=== PATIENT | male | born 1995 | race Caucasian/White ===

== ENCOUNTER 2017-07-03 17:06 | Emergency (ER) | payer OTHER ==
[~2017-07-03] VITALS: Ht 167.6 cm; Wt 68.0 kg
[2017-07-03 17:08] VITALS: BP 134/77; PULSE 84; TEMP 37.1; O2SAT 99; Ht 167.6 cm; Wt 68.0 kg
--- NOTE | 2017-07-03 18:47 | EMERGENCY ROOM VISIT NOTE ---
History First contact with patient: 17:12 Chief Complaint: FINGER PAIN Stated Complaint: L INDEX FINGER CHECK FOR GLASS History of Present Illness The patient is a 21 year old male who presents to the Emergency Room with complaints of left index finger laceration. The patient was changing a light bulb in a car, which shattered as he began to remove it. The patient did have a small shard of glass in his finger, which he removed. The patient is reportedly up-to-date on his tetanus. He does not have significant bleeding or pain. He is concerned for retained foreign body. He rates his overall discomfort a /10. Review of Systems More than 6 systems were reviewed and otherwise negative with the exception of history of present illness. Past Medical/Surgical History No chronic medical disease Family History No pertinent family history Social History Smoking Status: Never Smoker Alcohol Use: none Drug Use: none Marital Status: single Occupation Status: student Current/Historical Medications No Active Prescriptions or Reported Meds Physical Exam Vital Signs Date Time Temp Pulse Resp B/P (MAP) Pulse Ox O2 Delivery O2 Flow Rate FiO2 07/03/17 17:08 37.1 84 20 134/77 99 Room Air Physical Exam VITALS: Vitals are noted on the nurse's note and reviewed by myself. Vital signs stable. GENERAL: Well-developed, well-nourished, white male, who is in no acute distress and resting comfortably. Patient is cooperative with the examination. MUSCULOSKELETAL: There is a small 2 mm laceration to the medial palmar aspect of the distal left second finger. This area does not significantly gape and will not require formal repair. The area was explored and no evidence of foreign body was appreciated. Neurovascular status is intact throughout the digit. NEURO: Patient was alert and oriented to person place and time. CN II through XII grossly intact. Medical Decision & Procedures ED Course Physical exam and history were performed. Nursing notes, EMR, and Medication List were personally reviewed. Patient appears to have a small laceration to the end of his left second finger from glass. There does not appear to be appreciable foreign body. The wound was cleansed and dressed. The patient was asked to follow with his primary care physician with any ongoing or persistent symptoms. The chart was completed utilizing [employer] Software. Grammatical errors, random word insertions, pronoun errors, and incomplete sentences are an occasional consequence of this system due to software limitations, ambient noise, and hardware issues. Any formal questions or concerns about the content, text, or information contained within the body of this dictation should be directly addressed to the provider for clarification. . Medical Decision Differential diagnosis includes, but is not limited to: Laceration, abrasion, foreign body, and others Impression Primary Impression: Finger laceration Departure Information Dispostion Home / Self-Care Condition GOOD Prescriptions No Active Prescriptions or Reported Meds Forms HOME CARE DOCUMENTATION FORM, IMPORTANT VISIT INFORMATION Patient Instructions [facility] Additional Instructions You were seen and evaluated today on an emergency basis only. This is not a substitute for, or an effort to provide, complete comprehensive medical care. It is not possible to recognize and treat all injuries or illnesses in a single emergency department visit. For this reason it is recommended that you followup with your primary care physician with any ongoing or persistent symptoms. Apply antibiotic ointment and a Band-Aid to the area for the next 2-3 days. You are welcome to return to the emergency department anytime with new, worsening, or concerning symptoms.
== END 2017-07-03 17:35 | disposition home or self-care (01) ==
LOC: C.EDB 17:07 → C.EDD 17:35
DX: S61.211A Laceration without foreign body of left index finger without damage to nail, initial encounter (principal); W25.XXXA Contact with sharp glass, initial encounter

== ENCOUNTER 2024-11-25 01:45 | Inpatient (IN) ==
--- NOTE | 2024-11-25 01:55 | Emergency Department Note ---
Impression & Plan Sepsis, Pneumonia, Chest pain, Tachycardia, SOB (shortness of breath) ED Provider Note CHIEF COMPLAINT: Chest pain, fever HISTORY OF PRESENTING ILLNESS: This 29-year-old male patient presents to the emergency department via EMS for evaluation of left-sided chest pain as well as fever. The patient states that he was out to dinner eating with a friend. He states that he had 1 alcoholic drink, but no additional drinks. He denies any drug use. Around 9:30 pm he states that he went to go to the bathroom in the restaurant and felt like his hands and feet went numb and he started shaking. The patient then developed chest pain radiating to the left shoulder along with SOB. He then developed a fever of 103.6 F and his BP was elevated. He went home and took 3 Tylenol at 11 pm tonight and Liquid IV and drank a lot of water because he felt like he was dehydrated. The patient feels like he has to have diarrhea, but has not had diarrhea yet. The patient states that he was doing a lot of physical activity earlier in the day including lots of lifting and moving. He had a headache with the fever, but the headache improved after the Tylenol. The patient had an episode of vomiting and felt like he passed out in the ambulance when they were putting the IV in. He has been coughing for the past 3-4 weeks, but did not have a fever until tonight. Denies any abdominal pain. Denies any urinary symptoms. The patient denies any tobacco use or vaping. The patient denies any history of heart problems. He denies any known family history of significant heart problems. The patient denies recent long car or plane rides or recent injury/trauma/surgery. Denies any personal history of blood clots or bleeding disorders. Denies any family history of blood clots or bleeding disorders. Denies any hormonal medication use. Denies any hemoptysis. Denies leg/calf pain or swelling. REVIEW OF SYSTEMS: See HPI for pertinent positives and pertinent negatives. ALLERGIES: NKDA MEDICATIONS: None PAST MEDICAL HISTORY: Denies pertinent past medical or pertinent past surgical history PHYSICAL EXAM: Vital Signs: Vitals are noted on the nurse's note and reviewed by myself. GENERAL: The patient was somewhat erratic with his answers and was hard to keep on task. The patient was sometimes not finishing a thought or sentence prior to going on to a new thought or sentence. However, he was non toxic in appearance and in no acute distress. SKIN: No obvious abnormal rashes or skin lesions. Capillary reflex less than 2 seconds. HEAD: Normocephalic, atraumatic. EARS: Bilateral external auditory canals clear without tragus tenderness. Bilateral tympanic membranes pearly fowler without erythema or effusion. No mastoid tenderness bilaterally. EYES: Pupils equal round and reactive to light and accommodation. Conjunctivae without injection, sclerae without icterus. Extraocular movements intact. NOSE: Patent, turbinates inflamed with no discharge. No sinus tenderness. MOUTH: Mucous membranes moist. Airway patent, uvula midline. Pharynx is not erythematous and not edematous without exudate. Pharynx without postnasal drip. No evidence for peritonsillar abscess. NECK: Supple without nuchal rigidity. No meningeal signs. No lymphadenopathy. No cervical spine or paraspinal muscle tenderness. HEART: Tachycardic without murmurs gallops or rubs. LUNGS: Clear to auscultation bilaterally without wheezes, rales or rhonchi. No accessory muscle use or retractions. The patient is pointing to the left side of his upper chest wall and the location of pain. Mild tenderness to palpation in this area. No crepitus noted on exam. ABDOMEN: Positive bowel sounds x 4. Normal tympanic percussion. Soft, nontender to palpation. No masses or hepatosplenomegaly. No guarding, rigidity, or rebound tenderness. No CVA tenderness. No focal RLQ or LLQ tenderness. MUSCULOSKELETAL: Bilateral lower extremities are nontender to palpation. No erythema, edema, warmth, or cording felt. Full range of motion of the bilateral upper and lower extremities with normal strength. Normal sensation to light and sharp touch of the bilateral upper and lower extremities. Peripheral pulses 2+ and equal in the bilateral upper and lower extremities. NEURO: Patient was alert and oriented to person place and time, but was somewhat erratic with his answers and hard to keep on task. DIFFERENTIAL DIAGNOSIS: Differential diagnosis includes angina, [place], pericarditis, myocarditis, aortic dissection, pleurisy, pneumothorax, PE, pneumonia, pneumomediastinum, esophagitis, esophageal spasm, GERD, perforated esophagus, perforated duodenal/gastric ulcer, pancreatitis, cholecystitis, costochondritis, musculoskeletal, viral syndrome, RSV, Influenza, COVID, strep throat, pharyngitis/tonsillitis, mononucleosis, retropharyngeal abscess, peritonsillar abscess, otitis media, otitis externa, sinusitis, bronchitis, pneumonia, as well as other pathologies. ED COURSE AND MEDICAL DECISION MAKING: HISTORY FROM INDEPENDENT HISTORIAN: Additional history obtained from EMS MEDICATIONS GIVEN: A total of 2.5 L normal saline solution bolus. Ibuprofen 600 mg p.o. Magnesium 1 g IV. Rocephin 2 g IV. Zithromax 500 mg p.o. DuoNeb treatment. Tylenol 1000 mg IV. MONITOR: Continuous traffic monitor specialist: Order was placed for continuous traffic monitor specialist. Patient was placed on the traffic monitor specialist and continuous pulse ox. Patient was noted to be in tachycardia at an initial rate of 110 bpm per my interpretation. EKG: EKG was interpreted by myself as sinus tachycardia at [address]pm with no acute [address] or T wave changes. INTERPRETATION OF LABS: I interpreted the labs with full lab results as below in the lab section of this note. Laboratory results pertinent to the emergent complaint are discussed in the MDM section below. The patient was advised to follow up with their PCP and/or specialist(s) for further outpatient monitoring and management of any abnormal results. INTERPRETATION OF IMAGING: Imaging studies were interpreted by myself and read by radiology as per the imaging section of this note. The patient was advised to follow up with their PCP and/or specialist(s) for further outpatient management of any non-emergent abnormal findings. Chest x-ray showed newly developed ill-defined opacity at the right middle lung zone. CT is advised. A newly developed ill-defined opacity in the left lower lung zone. Progressive course of bilateral prominent bronchovascular markings and reticular opacities. CTA of the chest with IV contrast showed focal non-opacification of the lateral basal segmental artery of the left lower lobe. More likely to be artifactual because of partial volume rather than the segmental thromboembolism. Few small patchy areas of consolidation with surrounding groundglass densities in the basal segments of the left lower lobe. Represents changes of infective bronchiolitis. CONSULTATIONS: On-call hospitalist CRITICAL CARE: I have personally spent 40 minutes of critical care time in the direct management of this patient. This includes bedside care, interpretation of diagnostic studies, and testing, discussion with consultants, patient, and family members, and other required patient management activities. This 40 minutes is in excess of all separately billable procedures. MDM SUMMARY: I examined the patient. The patient presents to the emergency department complaining of left-sided chest pain as well as fever. The patient states that his symptoms started this evening at 9:30 PM while he was out to dinner with a friend. He states that he had 1 alcoholic drink at dinner, but no additional drinks. He denies any drug use. He states that he went up to go to the bathroom because he thought that he had to have diarrhea and noticed that his hands and feet were tingling. He then developed the chest pain and shortness of breath. When the patient got home he had a fever and his symptoms got worse. He took Tylenol with minimal improvement of his symptoms and then called EMS. On exam, the patient was tachycardic, febrile, and was somewhat erratic with his answers and hard to focus. However, those symptoms resolved after the patient was given IV fluids and oral ibuprofen with resolution of his fever. An IV lock was placed and labs were drawn. White blood cell count elevated at 21.75. Hemoglobin slightly low at 13.9. Platelet count normal at 276. Coags were normal. Potassium low at 3.4 and glucose 122, but CMP otherwise normal. Magnesium low at 1.4. Lipase normal. CPK normal. High-sensitivity troponin normal. Lactate normal. Urinalysis with trace ketones and trace blood, but otherwise normal. Urine drug screen negative. Medical alcohol level negative. Respiratory BioFire negative. Stool BioFire negative. Chest x-ray showed newly developed ill-defined opacity at the right middle lung zone. CT is advised. A newly developed ill-defined opacity in the left lower lung zone. Progressive course of bilateral prominent bronchovascular markings and reticular opacities. CTA of the chest with IV contrast showed focal non- opacification of the lateral basal segmental artery of the left lower lobe. More likely to be artifactual because of partial volume rather than the segmental thromboembolism. Few small patchy areas of consolidation with surrounding groundglass densities in the basal segments of the left lower lobe. Represents changes of infective bronchiolitis. The patient was still tachycardic after the 2 L of normal saline solution bolus based on his ideal body weight so he was given an additional 500 mL normal saline solution bolus. The patient's tachycardia finally improved after the additional 500 mL of normal saline solution bolus. However, he did continue to have intermittent episodes of tachycardia with exertion. The patient was given a total of 2.5 L normal saline solution bolus based on his actual body weight. After blood cultures were drawn, the patient was given Rocephin 2 g IV and Zithromax 500 mg p.o. to treat the pneumonia. The patient's fever resolved after oral ibuprofen. The patient's magnesium was low and he was given magnesium 1 g IV. The patient was given a DuoNeb treatment without much improvement of his symptoms. The patient was given IV Tylenol with improvement of his pain, but not full resolution. The patient has pneumonia on chest x-ray and CT scan. There is also question of thromboembolism versus artifactual etiology on the patient's CTA of the chest. While the patient improved both subjectively and objectively, the patient still had intermittent episodes of tachycardia as well as an episode of hypotension. Therefore, I feel the patient requires admission for further evaluation, treatment, and close monitoring of his symptoms. I spoke with the on-call hospitalist who agreed to admit the patient for further evaluation and treatment. Please refer to their dictation for further details. The patient's care was transferred in stable condition. DIAGNOSIS: Sepsis Pneumonia Tachycardia Chest pain and shortness of breath - ? Artifact versus thromboembolism on CTA of the chest Past Med/Surg History Problem List (Updated 11/25/24 @ 06:12 by Giovanna Jones PA-C) SOB (shortness of breath) (Acute) Tachycardia (Acute) Chest pain (Acute) Pneumonia (Acute) Sepsis (Acute) Wrist tendonitis Finger laceration (Acute) Foreign body, eye (Acute) Iritis (Acute) Medical History No pertinent past medical history Surgical History No pertinent past surgical history Social History Smoking Status: Never smoker Preferred Language: Kyrgyz Feels Safe at Home: Yes Allergies Allergies Allergy/AdvReac Type Severity Reaction Status Date / Time No Known Allergies Allergy Verified 11/25/24 02:20 Home Meds Home Medications Medication Instructions Recorded Confirmed No Known Home Medications 05/17/23 04/20/25 Results & Data (ED) Vital Signs Vital Signs - 24 hr 11/25/24 01:54 11/25/24 02:17 11/25/24 02:30 Temperature 38.3 C H Temperature Source Oral Pulse Rate 108 H 106 H 105 H Pulse Rate [Apical] Pulse Rate from SpO2 Sensor Pulse Rhythm Pulse Rhythm [Apical] Pulse Strength [Apical] Respiratory Rate 20 20 Respiratory Effort / Characteristics Non-Labored Spontaneous Respiratory Depth Normal Respiratory Pattern Regular Blood Pressure 115/68 121/73 Blood Pressure [Right Arm] Blood Pressure Mean 83 84 Blood Pressure Mean [Right Arm] Pulse Oximetry 98 98 Oxygen Delivery Method Room Air Sepsis Recent Fever Within 48 Hours No Sepsis New/Unexplained Change in Mental Status No Sepsis Action Taken by Nursing Adv Provider Notified 11/25/24 02:31 11/25/24 03:02 11/25/24 03:30 Temperature Temperature Source Pulse Rate 102 H 108 H Pulse Rate [Apical] 107 H Pulse Rate from SpO2 Sensor Pulse Rhythm Regular Pulse Rhythm [Apical] Regular Pulse Strength [Apical] Normal Respiratory Rate 20 21 20 Respiratory Effort / Characteristics Non-Labored Spontaneous Respiratory Depth Normal Respiratory Pattern Regular Blood Pressure 127/72 Blood Pressure [Right Arm] 122/62 Blood Pressure Mean 78 Blood Pressure Mean [Right Arm] 82 Pulse Oximetry 99 98 98 Oxygen Delivery Method Room Air Room Air Sepsis Recent Fever Within 48 Hours Sepsis New/Unexplained Change in Mental Status Sepsis Action Taken by Nursing 11/25/24 04:00 11/25/24 04:06 11/25/24 05:00 Temperature 37.1 C Temperature Source Oral Pulse Rate 101 H 89 Pulse Rate [Apical] Pulse Rate from SpO2 Sensor Pulse Rhythm Pulse Rhythm [Apical] Pulse Strength [Apical] Respiratory Rate 18 22 Respiratory Effort / Characteristics Respiratory Depth Respiratory Pattern Blood Pressure 122/60 95/60 L Blood Pressure [Right Arm] Blood Pressure Mean 80 68 Blood Pressure Mean [Right Arm] Pulse Oximetry 98 99 Oxygen Delivery Method Sepsis Recent Fever Within 48 Hours Sepsis New/Unexplained Change in Mental Status Sepsis Action Taken by Nursing 11/25/24 05:30 Temperature Temperature Source Pulse Rate 101 H Pulse Rate [Apical] Pulse Rate from SpO2 Sensor 101 H Pulse Rhythm Pulse Rhythm [Apical] Pulse Strength [Apical] Respiratory Rate 22 Respiratory Effort / Characteristics Respiratory Depth Respiratory Pattern Blood Pressure 112/64 Blood Pressure [Right Arm] Blood Pressure Mean 80 Blood Pressure Mean [Right Arm] Pulse Oximetry 97 Oxygen Delivery Method Sepsis Recent Fever Within 48 Hours Sepsis New/Unexplained Change in Mental Status Sepsis Action Taken by Nursing Laboratory Data 11/25/24 01:55 11/25/24 01:55 Lab Results 11/25/24 11/25/24 11/25/24 Range/Units 01:55 02:21 02:25 WBC 21.75 H (4.8-10.8) K/ul RBC 4.68 L (4.70-6.10) M/uL Hgb 13.9 L (14.0-18.0) g/dl Hct 39.2 L (42.0-52.0) % MCV 83.8 (80.0-100.0) fL MCH 29.7 (25.0-34.0) pg MCHC 35.5 (32.0-36.0) g/dL RDW Std Deviation 35.7 L (36.4-46.3) fL RDW Coeff of Dalton 11.9 (11.5-14.5) % Plt Count 276 (130-400) K/uL MPV 10.2 (9.4-12.4) fL Immature Gran % (Auto) 0.6 % Neut % (Auto) 86.6 % Lymph % (Auto) 7.4 % [place] % (Auto) 5.1 % Eos % (Auto) 0.1 % Baso % (Auto) 0.2 % Neut # (Auto) 18.83 H (1.40-6.50) K/uL Lymph # (Auto) 1.60 (1.20-3.40) K/uL [place] # (Auto) 1.11 H (0.11-0.59) K/uL Eos # (Auto) 0.02 (0.00-0.50) K/uL Baso # (Auto) 0.05 (0.00-0.20) K/uL Immature Gran # (Auto) 0.14 (0.01-0.20) K/uL PT 11.1 (9.0-12.0) Seconds INR 1.0 (0.9-1.1) APTT 23 (21-31) Seconds PTT Ratio 0.9 Sodium 136 (136-145) mmol/L Potassium 3.4 L (3.5-5.1) mmol/L Chloride 104 (98-107) mmol/L Carbon Dioxide 23 (21-32) mmol/L Anion Gap 9 (3-11) BUN 21 (6-23) mg/dl Creatinine 1.13 (0.6-1.4) mg/dl Est Cr Clr Drug Dosing 95.8 ml/min eGFR 91.36 BUN/Creatinine Ratio 18.6 (10-20) Glucose 122 H (70-99(Fasting)) mg/dl Lactate 1.3 (0.4-2.0) mmol/L Calcium 8.9 (8.6-10.3) mg/dl Magnesium 1.4 L (1.7-2.4) mg/dl Total Bilirubin 0.6 (0.2-1.0) mg/dl AST 30 (13-39) U/L ALT 25 (7-52) U/L Alkaline Phosphatase 58 (34-104) U/L Total Creatine Kinase 164 (30-223) U/L Troponin I High Sens 7.4 (0-20) pg/ml Total Protein 6.8 (6.0-8.3) gm/dl Albumin 4.4 (3.4-5.0) gm/dl Globulin 2.4 L (2.5-4.0) gm/dl Albumin/Globulin Ratio 1.8 (0.9-2) Lipase 15 (11-82) U/L Procalcitonin 0.72 H (0-0.5) ng/ml Urine Color Yellow Urine Appearance Clear (Clear) Urine pH 7.0 (4.5-7.5) Ur Specific Mercer 1.015 (1.000-1.030) Urine Protein Negative (Negative) Urine Glucose (UA) Negative (Negative) Urine Ketones Trace H (Negative) Urine Blood Trace H (Negative) Urine Nitrite Negative (Negative) Urine Bilirubin Negative (Negative) Urine Urobilinogen Negative (Negative) Ur Leukocyte Esterase Negative (Negative) Urine WBC (Auto) 0-5 (0-5) /hpf Urine RBC (Auto) 0-2 (0-2) /hpf U Hyaline Cast (Auto) 0-2 (0-2) /lpf U Epithel Cells (Auto) 0-2 (0-2) /hpf Urine Bacteria (Auto) None Seen (None Seen) Stl C. cayetanensis PCR Not Detected (NotDetected) Stool Rotavirus A PCR Not Detected (NotDetected) Stl Adenov F 40/41 PCR Not Detected (NotDetected) Stool Astrovirus (PCR) Not Detected (NotDetected) Stool Campylobacter PCR Not Detected (NotDetected) Stool Cryptosporidium PCR Not Detected (NotDetected) Stl E.coli Shiga Tox PCR Not Detected (NotDetected) Stl Enterotoxigenic E PCR Not Detected (NotDetected) Stool EPEC (PCR) Not Detected (NotDetected) Stool EAEC (PCR) Not Detected (NotDetected) Stl E. histolytica PCR Not Detected (NotDetected) Stool Giardia Lamblia PCR Not Detected (NotDetected) Stool Salmonella PCR Not Detected (NotDetected) Stool Sapovirus (PCR) Not Detected (NotDetected) Stl P. shigelloides PCR Not Detected (NotDetected) Stl Shigella/EIEC PCR Not Detected (NotDetected) St Y.enterocolitica PCR Not Detected (NotDetected) Stool Vibrio (PCR) Not Detected (NotDetected) Stl Vibrio cholerae PCR Not Detected (NotDetected) Stl Norovirus GI/GII PCR Not Detected (NotDetected) Urine Opiates Screen Neg (Neg) Ur Methadone, Qual Neg (Neg) Urine Fentanyl Screen Neg (Neg) Urine Barbiturates Neg (Neg) Ur Phencyclidine (PCP) Neg (Neg) U Amphetamin/Meth Scrn Neg (Neg) MDMA (Ecstasy) Screen Neg (Neg) U Benzodiazepines Scrn Neg (Neg) Ur Cocaine Metabolite Neg (Neg) U Marijuana (THC) Screen Neg (Neg) Ethyl Alcohol mg/dL < 10.0 (<10.0) mg/dl Adenovirus (PCR) (NotDetected) B. pertussis DNA (PCR) (NotDetected) B.parapertussis DNA PCR (NotDetected) C. pneumoniae DNA (PCR) (NotDetected) Coronavirus OC43 (PCR) (NotDetected) Coronavirus HKU1 (PCR) (NotDetected) Coronavirus 229E (PCR) (NotDetected) SARS-CoV-2 (PCR) (NotDetected) Coronavirus NL63 (PCR) (NotDetected) Human Metapneumovir PCR (NotDetected) Influenza Type A (PCR) (NotDetected) Influenza Type B (PCR) (NotDetected) M. pneumoniae (PCR) (NotDetected) Parainfluenza 1 (PCR) (NotDetected) Parainfluenza 2 (PCR) (NotDetected) Parainfluenza 3 (PCR) (NotDetected) Parainfluenza 4 (PCR) (NotDetected) RSV (PCR) (NotDetected) Entero/Rhino (PCR) (NotDetected) 11/25/24 Range/Units 02:42 WBC (4.8-10.8) K/ul RBC (4.70-6.10) M/uL Hgb (14.0-18.0) g/dl Hct (42.0-52.0) % MCV (80.0-100.0) fL MCH (25.0-34.0) pg MCHC (32.0-36.0) g/dL RDW Std Deviation (36.4-46.3) fL RDW Coeff of Dalton (11.5-14.5) % Plt Count (130-400) K/uL MPV (9.4-12.4) fL Immature Gran % (Auto) % Neut % (Auto) % Lymph % (Auto) % [place] % (Auto) % Eos % (Auto) % Baso % (Auto) % Neut # (Auto) (1.40-6.50) K/uL Lymph # (Auto) (1.20-3.40) K/uL [place] # (Auto) (0.11-0.59) K/uL Eos # (Auto) (0.00-0.50) K/uL Baso # (Auto) (0.00-0.20) K/uL Immature Gran # (Auto) (0.01-0.20) K/uL PT (9.0-12.0) Seconds INR (0.9-1.1) APTT (21-31) Seconds PTT Ratio Sodium (136-145) mmol/L Potassium (3.5-5.1) mmol/L Chloride (98-107) mmol/L Carbon Dioxide (21-32) mmol/L Anion Gap (3-11) BUN (6-23) mg/dl Creatinine (0.6-1.4) mg/dl Est Cr Clr Drug Dosing ml/min eGFR BUN/Creatinine Ratio (10-20) Glucose (70-99(Fasting)) mg/dl Lactate (0.4-2.0) mmol/L Calcium (8.6-10.3) mg/dl Magnesium (1.7-2.4) mg/dl Total Bilirubin (0.2-1.0) mg/dl AST (13-39) U/L ALT (7-52) U/L Alkaline Phosphatase (34-104) U/L Total Creatine Kinase (30-223) U/L Troponin I High Sens (0-20) pg/ml Total Protein (6.0-8.3) gm/dl Albumin (3.4-5.0) gm/dl Globulin (2.5-4.0) gm/dl Albumin/Globulin Ratio (0.9-2) Lipase (11-82) U/L Procalcitonin (0-0.5) ng/ml Urine Color Urine Appearance (Clear) Urine pH (4.5-7.5) Ur Specific [place] (1.000-1.030) Urine Protein (Negative) Urine Glucose (UA) (Negative) Urine Ketones (Negative) Urine Blood (Negative) Urine Nitrite (Negative) Urine Bilirubin (Negative) Urine Urobilinogen (Negative) Ur Leukocyte Esterase (Negative) Urine WBC (Auto) (0-5) /hpf Urine RBC (Auto) (0-2) /hpf U Hyaline Cast (Auto) (0-2) /lpf U Epithel Cells (Auto) (0-2) /hpf Urine Bacteria (Auto) (None Seen) Stl C. cayetanensis PCR (NotDetected) Stool Rotavirus A PCR (NotDetected) Stl Adenov F 40/41 PCR (NotDetected) Stool Astrovirus (PCR) (NotDetected) Stool Campylobacter PCR (NotDetected) Stool Cryptosporidium PCR (NotDetected) Stl E.coli Shiga Tox PCR (NotDetected) Stl Enterotoxigenic E PCR (NotDetected) Stool EPEC (PCR) (NotDetected) Stool EAEC (PCR) (NotDetected) Stl E. histolytica PCR (NotDetected) Stool Giardia Lamblia PCR (NotDetected) Stool Salmonella PCR (NotDetected) Stool Sapovirus (PCR) (NotDetected) Stl P. shigelloides PCR (NotDetected) Stl Shigella/EIEC PCR (NotDetected) St Y.enterocolitica PCR (NotDetected) Stool Vibrio (PCR) (NotDetected) Stl Vibrio cholerae PCR (NotDetected) Stl Norovirus GI/GII PCR (NotDetected) Urine Opiates Screen (Neg) Ur Methadone, Qual (Neg) Urine Fentanyl Screen (Neg) Urine Barbiturates (Neg) Ur Phencyclidine (PCP) (Neg) U Amphetamin/Meth Scrn (Neg) MDMA (Ecstasy) Screen (Neg) U Benzodiazepines Scrn (Neg) Ur Cocaine Metabolite (Neg) U Marijuana (THC) Screen (Neg) Ethyl Alcohol mg/dL (<10.0) mg/dl Adenovirus (PCR) Not Detected (NotDetected) B. pertussis DNA (PCR) Not Detected (NotDetected) B.parapertussis DNA PCR Not Detected (NotDetected) C. pneumoniae DNA (PCR) Not Detected (NotDetected) Coronavirus OC43 (PCR) Not Detected (NotDetected) Coronavirus HKU1 (PCR) Not Detected (NotDetected) Coronavirus 229E (PCR) Not Detected (NotDetected) SARS-CoV-2 (PCR) Not Detected (NotDetected) Coronavirus NL63 (PCR) Not Detected (NotDetected) Human Metapneumovir PCR Not Detected (NotDetected) Influenza Type A (PCR) Not Detected (NotDetected) Influenza Type B (PCR) Not Detected (NotDetected) M. pneumoniae (PCR) Not Detected (NotDetected) Parainfluenza 1 (PCR) Not Detected (NotDetected) Parainfluenza 2 (PCR) Not Detected (NotDetected) Parainfluenza 3 (PCR) Not Detected (NotDetected) Parainfluenza 4 (PCR) Not Detected (NotDetected) RSV (PCR) Not Detected (NotDetected) Entero/Rhino (PCR) Not Detected (NotDetected) Administered Medications Discontinued Medications Albuterol (Albut/Ipratrop 3mg/0.5mg Neb 3 Ml Vial) 3 ml NEB NOW STA; Protocol Stop: 11/25/24 04:17 Last Admin: 11/25/24 04:38 Dose: 3 ml Documented By: VIRGEN Azithromycin (Azithromycin 250 Mg Tab) 500 mg PO NOW ONE Stop: 11/25/24 04:17 Last Admin: 11/25/24 04:38 Dose: 500 mg Documented By: VIRGEN Sodium Chloride (Nss) 1,000 mls @ 999 mls/hr IV .Q1H1M ONE Stop: 11/25/24 03:00 Last Infusion: 11/25/24 04:50 Dose: Infused Documented By: Admin: 11/25/24 02:18 Dose: 999 mls/hr Documented By: VIRGEN Magnesium Sulfate/Dextrose (Magnesium Sulfate / D5w) 1 gm in 100 mls @ 100 mls/hr IV NOW STA Stop: 11/25/24 03:47 Last Infusion: 11/25/24 04:50 Dose: Infused Documented By: Admin: 11/25/24 03:03 Dose: 100 mls/hr Documented By: VIRGEN Sodium Chloride (Nss) 1,000 mls @ 999 mls/hr IV .Q1H1M ONE Stop: 11/25/24 04:36 Last Admin: 11/25/24 04:07 Dose: 999 mls/hr Documented By: VIRGEN Ceftriaxone Sodium (Rocephin) 2,000 mg in 50 mls @ 100 mls/hr IV NOW STA Stop: 11/25/24 04:45 Last Infusion: 11/25/24 05:13 Dose: Infused Documented By: Admin: 11/25/24 04:38 Dose: 100 mls/hr Documented By: VIRGEN Acetaminophen (Ofirmev) 1,000 mg in 100 mls @ 400 mls/hr IV NOW STA Stop: 11/25/24 04:30 Last Infusion: 11/25/24 05:02 Dose: Infused Documented By: Admin: 11/25/24 04:37 Dose: 400 mls/hr Documented By: VIRGEN Sodium Chloride (Nss) 500 mls @ 999 mls/hr IV .Q31M ONE Stop: 11/25/24 04:46 Last Admin: 11/25/24 04:41 Dose: 999 mls/hr Documented By: VIRGEN Ibuprofen (Ibuprofen 600 Mg Tab) 600 mg PO NOW STA Stop: 11/25/24 02:01 Last Admin: 11/25/24 02:18 Dose: 600 mg Documented By: VIRGEN Ioversol (Optiray 320 125ml) 125 ml IV ONCE ONE Stop: 11/25/24 03:05 Last Admin: 11/25/24 03:04 Dose: 118 ml Documented By: ALEAH Imaging Data Radiologist's Impression: Chest X-Ray 11/25/24 02:00 EXAM: XR chest 1V portable CLINICAL HISTORY: Chest pain, nonspecific. TECHNIQUE: An X-ray of the chest is obtained in AP projection. COMPARISON: Prior CT angio 12/22/2022 reviewed. FINDINGS: Pulmonary Parenchyma: Newly developed ill-defined opacity seen at the middle lung zone silhouetting the right heart border. A newly developed an ill defined opacity is seen at the left lower lung zone. Progressive course of bilateral prominent bronchovascular markings and reticular opacities. No pulmonary nodules are identified. No evidence of pleural effusion or pleural thickening. Heart and Mediastinum: Heart size and shape are normal. No mediastinal widening or masses. No hilar or mediastinal lymphadenopathy. Bony Thorax: Bony thorax appears intact without fractures or deformities. Soft Tissues: Soft tissues overlying the chest wall are unremarkable. IMPRESSION: 1. Newly developed ill-defined opacity seen at the right middle lung zone; CT is advised. 2. A newly developed an ill defined opacity is seen at the left lower lung zone. 3. Progressive course of bilateral prominent bronchovascular markings and reticular opacities. Electronically signed by Singh Vang 11-25-2024 03:19 AM Chest CTA 11/25/24 02:01 EXAM: CT angio chest PE protocol CLINICAL HISTORY: Chest Pain, eval for PE TECHNIQUE: Contiguous axial images were obtained from the neck base through the upper abdomen following intravenous administration of iodinated contrast material. Angiographic images were processed, 3D MIP images were acquired for interpretation. If IV contrast material had not been administered, the likelihood of detecting abnormalities relevant to the patient's condition would have been substantially decreased. Coronal and sagittal 3-D MIPs were likewise performed and indicated to increase the sensitivity of detectin diffuse clinically relevant pathology. CT scan was performed according to ALARA (as low as reasonable achievable). COMPARISON: 12/22/2022 16:38:53 [employer] HELPER FINDINGS: Focal non-opacification of lateral basal segmental artery of left lower lobe. The central airways are patent. Few small patchy areas of consolidation with surrounding ground glass densities are noted in the basal segments of left lower lobe. Rest of the lungs are clear. No pleural effusion. The heart, aorta, and pulmonary arteries are of normal size and configuration. There are no appreciable coronary artery and aortic atherosclerotic calcifications. No pericardial effusion is identified. The thyroid is unremarkable. No mediastinal, hilar, or axillary lymphadenopathy is noted. No suspicious lytic or sclerotic osseous lesions are identified. IMPRESSION: 1. Focal non-opacification of lateral basal segmental artery of left lower lobe-More likely to be an artifactual because of partial volume rather than segmental thromboembolisml. 2. Few small patchy areas of consolidation with surrounding ground glass densities in the basal segments of left lower lobe. (New finding)-Represents changes of infective bronchiolitis - needs clinical and biochemical Parameters correlation. Electronically signed by Luis Garcia 11-25-2024 03:59 AM Discharge Plan Visit Data Chief Complaint: Chest Pain Stated Complaint: Chest Pain, Syncope, Cough ED Provider: Muriel Song ED Midlevel Provider: Giovanna Jones Discharge Problem: Sepsis, Pneumonia, Chest pain, Tachycardia, SOB (shortness of breath) Patient Disposition: Admitted As Inpatient Condition: Good Forms Stand Alone Forms: [facility] [email or web address], Important Visit Information Prescriptions Prescriptions: No Action No Known Home Medications Referrals Referrals: PCP,NO [Primary Care Provider] - Discharge Problem: Pneumonia Qualifiers: Pneumonia type: due to unspecified organism Laterality: bilateral Lung location: unspecified part of lung Qualified Code(s): J18.9 - Pneumonia, unspecified organism Chest pain Qualifiers: Chest pain type: unspecified Qualified Code(s): R07.9 - Chest pain, unspecified
[2024-11-25 02:17] LABS: Basophils # (auto) 0.05 K/uL (0.00-0.20); Basophils % (auto) 0.2 %; Eosinophils # (auto) 0.02 K/uL (0.00-0.50); Eosinophils % (auto) 0.1 %; Hematocrit (blood only) 39.2 % (42.0-52.0); Hemoglobin 13.9 g/dl (14.0-18.0); Immature Granulocytes # (auto) 0.14 K/uL (0.01-0.20); Immature Granulocytes % (auto) 0.6 %; Lymphocytes % (auto) 7.4 %; Mean Corpuscular Hemoglobin 29.7 pg (25.0-34.0); Mean Corpuscular Hgb Conc 35.5 g/dL (32.0-36.0); Mean Corpuscular Volume 83.8 fL (80.0-100.0); Mean Platelet Volume 10.2 fL (9.4-12.4); Monocytes # (auto) 1.11 K/uL (0.11-0.59); Monocytes % (auto) 5.1 %; Neutrophils # (auto) 18.83 K/uL (1.40-6.50); Neutrophils % (auto) 86.6 %; Platelet Count 276 K/uL (130-400); RDW Coefficient of Variation 11.9 % (11.5-14.5); RDW Standard Deviation 35.7 fL (36.4-46.3); Red Blood Count 4.68 M/uL (4.70-6.10); White Blood Count 21.75 K/ul (4.8-10.8)
[2024-11-25] MEDS: IBUPROFEN 600 MG TAB PO STA (02:18)
[2024-11-25] MEDS: SODIUM CHLORIDE 0.9% 1,000 ML IV ONE ×2 (02:18→04:07)
[2024-11-25 02:36] LABS: Albumin Globulin Ratio 1.8 (0.9-2); Albumin Level 4.4 gm/dl (3.4-5.0); BUN Creatinine Ratio 18.6 (10-20); Bilirubin,Total 0.6 mg/dl (0.2-1.0); Calcium 8.9 mg/dl (8.6-10.3); Creatinine Clr Calc Pharmacy 95.8 ml/min; Globulin 2.4 gm/dl (2.5-4.0); Magnesium 1.4 mg/dl (1.7-2.4); Potassium 3.4 mmol/L (3.5-5.1); Total Protein 6.8 gm/dl (6.0-8.3)
[2024-11-25 02:43] LABS: Partial Thromboplastin Ratio 0.9; Partial Thromboplastin Time 23 Seconds (21-31); Prothrombin Time 11.1 Seconds (9.0-12.0)
[2024-11-25 02:50] LABS: Appearance Urine Clear (Clear); Bacteria Urine Automated None Seen (None Seen); Bilirubin Urine Negative (Negative); Blood Urine Trace (Negative); Cast Urine Automated 0-2 /lpf (0-2); Color Urine Yellow; Epithelial Cell Urine Auto 0-2 /hpf (0-2); Glucose Urine UA Negative (Negative); Ketones Urine Trace (Negative); Leukocyte Esterase Urine Negative (Negative); Nitrite Urine Negative (Negative); Protein Urine Negative (Negative); RBC Urine Automated 0-2 /hpf (0-2); Specific Gravity Urine 1.015 (1.000-1.030); Urobilinogen Urine Negative (Negative); WBC Urine Automated 0-5 /hpf (0-5)
[2024-11-25 03:03] LABS: Troponin I High Sensitivity 7.4 pg/ml (0-20)
[2024-11-25] MEDS: MAGNESIUM SULFATE / D5W 1 GM/100 ML BAG IV STA (03:03)
[2024-11-25] MEDS: OPTIRAY 320 125ml IV ONE (03:04)
--- NOTE | 2024-11-25 03:20 | XRay Report ---
EXAM: XR chest 1V portable CLINICAL HISTORY: Chest pain, nonspecific. TECHNIQUE: An X-ray of the chest is obtained in AP projection. COMPARISON: Prior CT angio 12/22/2022 reviewed. FINDINGS: Pulmonary Parenchyma: Newly developed ill-defined opacity seen at the middle lung zone silhouetting the right heart border. A newly developed an ill defined opacity is seen at the left lower lung zone. Progressive course of bilateral prominent bronchovascular markings and reticular opacities. No pulmonary nodules are identified. No evidence of pleural effusion or pleural thickening. Heart and Mediastinum: Heart size and shape are normal. No mediastinal widening or masses. No hilar or mediastinal lymphadenopathy. Bony Thorax: Bony thorax appears intact without fractures or deformities. Soft Tissues: Soft tissues overlying the chest wall are unremarkable. IMPRESSION: 1. Newly developed ill-defined opacity seen at the right middle lung zone; CT is advised. 2. A newly developed an ill defined opacity is seen at the left lower lung zone. 3. Progressive course of bilateral prominent bronchovascular markings and reticular opacities. Electronically signed by Singh Vang 11-25-2024 03:19 AM
[2024-11-25 03:23] LABS: Amphetamines+Metham, Urine Neg (Neg); Barbiturates, Urine Neg (Neg); Benzodiazepine, Urine Neg (Neg); Cocaine, Urine Neg (Neg); Fentanyl, Urine Neg (Neg); MDMA (Ecstacy), Urine Neg (Neg); Marijuana, Urine Neg (Neg); Methadone, Urine Neg (Neg); Opiate, Urine Neg (Neg); Phencyclidine, Urine Neg (Neg)
[2024-11-25 03:40] LABS: Adenovirus PCR Not Detected (NotDetected); Bordetella parapertussis PCR Not Detected (NotDetected); Bordetella pertussis PCR Not Detected (NotDetected); Chlamydia pneumoniae PCR Not Detected (NotDetected); Coronavirus 229E PCR Not Detected (NotDetected); Coronavirus CoV-2 (COVID19)PCR Not Detected (NotDetected); Coronavirus HKU1 PCR Not Detected (NotDetected); Coronavirus NL63 PCR Not Detected (NotDetected); Coronavirus OC43PCR Not Detected (NotDetected); Human Metapneumovirus PCR Not Detected (NotDetected); Influenza A PCR Not Detected (NotDetected); Influenza B PCR Not Detected (NotDetected); Mycoplasma pneumoniae PCR Not Detected (NotDetected); Parainfluenza Virus 1 PCR Not Detected (NotDetected); Parainfluenza Virus 2 PCR Not Detected (NotDetected); Parainfluenza Virus 3 PCR Not Detected (NotDetected); Parainfluenza Virus 4 PCR Not Detected (NotDetected); Respiratory Syncytial VirusPCR Not Detected (NotDetected); Rhinovirus/Enterovirus PCR Not Detected (NotDetected)
--- NOTE | 2024-11-25 04:00 | CT Scan Report ---
EXAM: CT angio chest PE protocol CLINICAL HISTORY: Chest Pain, eval for PE TECHNIQUE: Contiguous axial images were obtained from the neck base through the upper abdomen following intravenous administration of iodinated contrast material. Angiographic images were processed, 3D MIP images were acquired for interpretation. If IV contrast material had not been administered, the likelihood of detecting abnormalities relevant to the patient's condition would have been substantially decreased. Coronal and sagittal 3-D MIPs were likewise performed and indicated to increase the sensitivity of detectin diffuse clinically relevant pathology. CT scan was performed according to ALARA (as low as reasonable achievable). 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 The central airways are patent. Few small patchy areas of consolidation with surrounding ground glass densities are noted in the basal segments of left lower lobe. Rest of the lungs are clear. No pleural effusion. The heart, aorta, and pulmonary arteries are of normal size and configuration. There are no appreciable coronary artery and aortic atherosclerotic calcifications. No pericardial effusion is identified. The thyroid is unremarkable. No mediastinal, hilar, or axillary lymphadenopathy is noted. No suspicious lytic or sclerotic osseous lesions are identified. IMPRESSION: 1. Focal non-opacification of lateral basal segmental artery of left lower lobe-More likely to be an artifactual because of partial volume rather than segmental thromboembolisml. 2. Few small patchy areas of consolidation with surrounding ground glass densities in the basal segments of left lower lobe. (New finding)-Represents changes of infective bronchiolitis - needs clinical and biochemical Parameters correlation. Electronically signed by Luis Garcia 11-25-2024 03:59 AM
[2024-11-25 04:01] LABS: Adenovirus F 40/41 PCR Not Detected (NotDetected); Astrovirus PCR Not Detected (NotDetected); Campylobacter PCR Not Detected (NotDetected); Cryptosporidium PCR Not Detected (NotDetected); Cyclospora cayetanensis PCR Not Detected (NotDetected); Entamoeba histolytica PCR Not Detected (NotDetected); Enteroaggregative E.coli(EAEC) Not Detected (NotDetected); Enteropathogenic E.coli (EPEC) Not Detected (NotDetected); Enterotoxigenic E.coli (ETEC) Not Detected (NotDetected); Giardia lamblia PCR Not Detected (NotDetected); Norovirus GI/GII PCR Not Detected (NotDetected); Plesiomonas shigelloides PCR Not Detected (NotDetected); Rotavirus A PCR Not Detected (NotDetected); Salmonella PCR Not Detected (NotDetected); Sapovirus PCR Not Detected (NotDetected); Shiga-like Toxin E.coli (STEC) Not Detected (NotDetected); Shigella/Enteroinvasive E.coli Not Detected (NotDetected); Vibrio cholerae PCR Not Detected (NotDetected); Vibrio species PCR Not Detected (NotDetected); Yersinia enterocolitica PCR Not Detected (NotDetected)
[2024-11-25] MEDS: ACETAMINOPHEN 1,000 MG/100 ML VIAL IV STA (04:37)
[2024-11-25] MEDS: AZITHROMYCIN 250 MG TAB PO ONE (04:38)
[2024-11-25] MEDS: cefTRIAXone SODIUM 2,000 MG/50 ML BAG IV STA (04:38)
[2024-11-25] MEDS: ALBUT/IPRATROP 3MG/0.5MG NEB 3 ML VIAL NEB STA (04:38)
[2024-11-25] MEDS: SODIUM CHLORIDE 0.9% 500 ML IV ONE (04:41)
--- NOTE | 2024-11-25 04:57 | History & Physical Report ---
Date of Service November 25, 2024 Assessment & Plan (1) Sepsis: (2) Pneumonia: Plan 29-year-old male with no significant PMHx who presents for chest pain starting the day [employer]. ED evaluation revealed leukocytosis 21.75 neutrophil predominant, H&H 13.9/39.2; PT/INR WNL; CMP potassium 3.4, glucose 122, magnesium 1.4, globulin 2.4; CK1 64; Trope 7.4; UA negative for infection; BioFire negative; stool studies negative; drug screen negative; CXR Develop ill-defined opacity seen in right middle lung zone, newly developed ill-defined opacity seen in left lower lung zone, progressive course of bilateral pulmonary bronchovascular markings and reticular opacities; chest CTA focal nonopacification of the lateral basal segmental artery of left lower lobe more likely to be artifactual because of volume rather than PE, few small patchy areas of consolidation with surrounding groundglass densities in the basal segments of LLL, changes of infective bronchiolitis; EKG sinus tachycardia with RAD at 114 bpm.; Provided with 2.5L NSS, mag sulfate 1 g IV, ibuprofen 600 mg p.o., ceftriaxone 2 g IV, azithromycin 500 mg p.o., butyryl 3 mL neb x 1, and acetaminophen 1 g IV in ED. #Sepsis/PNA Meeting sepsis criteria at admission, SIRS (HR, temp, WBC). Sx of sudden onset chest pain, shortness of breath, numbness/tingling in hands and feet starting the day of arrival. Did have 1 episode of vomiting and 1 episode of looser stool. Does not smoke, no illicit drug use. Tachycardic but otherwise hemodynamically stable- Suspect 2/2 infection/was nervous about symptoms. - CBC leukocytosis 21.75, H&H 13.9/29.2; BMP grossly WNL with exception potassium 3.4; troponin 7.4; lactate 1.3; BioFire negative; stool studies negative; Pro-Jaret pending - CBC a.m. - EKG sinus tachycardia - CXR ill-defined opacity seen in right middle lung zone, newly developed ill- defined opacity seen in left lower lung zone, progressive course of bilateral pulmonary bronchovascular markings and reticular opacities - Chest CTA focal nonopacification lateral basal segmental artery of LLL more likely to be artifactual rather than PE, few small patchy areas of consolidation with surrounding ground glass densities in the basal segments of LLL - O2 via NC to maintain >92%; No O2 at home - Sepsis fluids equal 1936 mL; received 2.5L total - Tylenol prn fever; Zofran prn N/V - PE vs artifact on chest CTA -- Lovenox started as VTE prophylaxis - Ceftriaxone 2 g IV + azithromycin 500 mg p.o. x 3 days #Hypomagnesemia As found on labs, appears to be acute. Received magnesium sulfate 1 g IV in ED. - Mg 1.4 - Mg am Dispo: Admit, med/tele VTE Prophylaxis: Lovenox This document was dictated utilizing GoToTags. Please excuse any grammatical errors that may be secondary to use of this software. 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 States that he was out to dinner when he got up to use the restroom to have a BM. At that time he started to have leg and hand numbness as well as some chest pain. He states that this episode lasted approximately 5 to 8 minutes and then he went and sat back down at the table. He went home following this and notes that he had a similar episode when he went to his brother's house where he started to have some left-sided chest pain that did not radiate, and it continued to become more severe throughout the night. States that it was just a heavy/sharp pain and was associated with SOB. He states that he felt as though he cannot take a deep breath. He does report that he has had approximately 3 days of a productive cough but he is unsure the quality of the sputum. He had a fever the day of arrival at 103 F and he took a Tylenol and it decreased some. Did have 1 episode of nausea with vomiting. Patient states he is currently chest pain-free, not SOB, and no palpitations. Denies any calf pain or swelling. Does not smoke, denies illicit drug use. ED evaluation revealed leukocytosis 21.75 neutrophil predominant, H&H 13.9/39.2; PT/INR WNL; CMP potassium 3.4, glucose 122, magnesium 1.4, globulin 2.4; CK1 64; Trope 7.4; UA negative for infection; BioFire negative; stool studies negative; drug screen negative; CXR Develop ill-defined opacity seen in right middle lung zone, newly developed ill-defined opacity seen in left lower lung zone, progressive course of bilateral pulmonary bronchovascular markings and reticular opacities; chest CTA focal nonopacification of the lateral basal segmental artery of left lower lobe more likely to be artifactual because of volume rather than PE, few small patchy areas of consolidation with surrounding groundglass densities in the basal segments of LLL, changes of infective bronchiolitis; EKG sinus tachycardia with RAD at 114 bpm.; Provided with 2.5L NSS, mag sulfate 1 g IV, ibuprofen 600 mg p.o., ceftriaxone 2 g IV, azithromycin 500 mg p.o., butyryl 3 mL neb x 1, and acetaminophen 1 g IV in ED. Please see Dr. Tubbs's attestation for adjustments/additions to treatment plan. Allergies Allergy/AdvReac Type Severity Reaction Status Date / Time No Known Allergies Allergy Verified 11/25/24 02:20 Home Medications Medication Instructions Recorded Confirmed Type No Known Home Medications 12/22/22 11/25/24 History Past Med/Surg History Problem List (Updated 11/25/24 @ 06:12 by Giovanna Jones PA-C) SOB (shortness of breath) (Acute) Tachycardia (Acute) Chest pain (Acute) Pneumonia (Acute) Sepsis (Acute) Wrist tendonitis Finger laceration (Acute) Foreign body, eye (Acute) Iritis (Acute) Medical History No pertinent past medical history Surgical History No pertinent past surgical history Social History Smoking Status: Never smoker Preferred Language: Fijian Feels Safe at Home: Yes Review of Systems Review of Systems: All systems reviewed & are unremarkable except as noted in Subjective Physical Exam Physical Exam: General: No acute distress Skin: Warm and dry Head: Normocephalic, atraumatic Eyes: PERRL, conjunctivae clear, sclera non-icteric ENT: External ear and ear canal without swelling; nose atraumatic; good dentition, tongue normal appearance, pharynx normal Neck: Supple, no LAD Cardio: Tachycardic, regular rhythm, no M/G/R, S1 and S2 normal Resp: No respiratory distress, Lungs CTA in all lobes bilaterally, no wheezes, rales, or rhonchi Abdomen: Soft, symmetric, nontender; No masses or hepatosplenomegaly; Bowel sounds normoactive MSK: No deformities; pulses palpable and equal; no edema; no calf size discrepancy, no calf edema, no calf tenderness Neuro: Awake, alert; Sensation intact bilaterally; CN grossly intact Psych: Appropriate mood and affect; good judgement and insight. Results & Data Results & Data Vital Signs (Past 12 Hours) Vital Signs Temp Pulse Pulse Resp BP BP Pulse Ox 11/25/24 04:06 37.1 C 11/25/24 04:00 101 H 18 122/60 98 11/25/24 03:30 107 H 20 122/62 98 11/25/24 03:02 108 H 21 127/72 98 11/25/24 02:31 102 H 20 99 11/25/24 02:30 105 H 20 121/73 98 11/25/24 02:17 106 H 11/25/24 01:54 38.3 C H 108 H 20 115/68 98 O2 Del Method 11/25/24 04:06 11/25/24 04:00 11/25/24 03:30 Room Air 11/25/24 03:02 11/25/24 02:31 Room Air 11/25/24 02:30 11/25/24 02:17 11/25/24 01:54 Room Air Laboratory Results 11/25/24 04:17 Aerobic Blood Culture - Pending Blood Anaerobic Blood Culture - Pending 11/25/24 04:15 Aerobic Blood Culture - Pending Blood Anaerobic Blood Culture - Pending 11/25/24 11/25/24 11/25/24 02:42 02:25 02:21 WBC RBC Hgb Hct MCV MCH MCHC RDW Std Deviation RDW Coeff of Dalton Plt Count MPV Immature Gran % (Auto) Neut % (Auto) Lymph % (Auto) Daniels % (Auto) Eos % (Auto) Baso % (Auto) Neut # (Auto) Lymph # (Auto) Daniels # (Auto) Eos # (Auto) Baso # (Auto) Immature Gran # (Auto) PT INR APTT PTT Ratio Sodium Potassium Chloride Carbon Dioxide Anion Gap BUN Creatinine Est Cr Clr Drug Dosing eGFR BUN/Creatinine Ratio Glucose Lactate 1.3 Calcium Magnesium Total Bilirubin AST ALT Alkaline Phosphatase Total Creatine Kinase Troponin I High Sens Total Protein Albumin Globulin Albumin/Globulin Ratio Lipase Urine Color Yellow Urine Appearance Clear Urine pH 7.0 Ur Specific [place] 1.015 Urine Protein Negative Urine Glucose (UA) Negative Urine Ketones Trace H Urine Blood Trace H Urine Nitrite Negative Urine Bilirubin Negative Urine Urobilinogen Negative Ur Leukocyte Esterase Negative Urine WBC (Auto) 0-5 Urine RBC (Auto) 0-2 U Hyaline Cast (Auto) 0-2 U Epithel Cells (Auto) 0-2 Urine Bacteria (Auto) None Seen Stl C. cayetanensis PCR Not Detected Stool Rotavirus A PCR Not Detected Stl Adenov F 40/41 PCR Not Detected Stool Astrovirus (PCR) Not Detected Stool Campylobacter PCR Not Detected Stool Cryptosporidium PCR Not Detected Stl E.coli Shiga Tox PCR Not Detected Stl Enterotoxigenic E PCR Not Detected Stool EPEC (PCR) Not Detected Stool EAEC (PCR) Not Detected Stl E. histolytica PCR Not Detected Stool Giardia Lamblia PCR Not Detected Stool Salmonella PCR Not Detected Stool Sapovirus (PCR) Not Detected Stl P. shigelloides PCR Not Detected Stl Shigella/EIEC PCR Not Detected St Y.enterocolitica PCR Not Detected Stool Vibrio (PCR) Not Detected Stl Vibrio cholerae PCR Not Detected Stl Norovirus GI/GII PCR Not Detected Urine Opiates Screen Neg Ur Methadone, Qual Neg Urine Fentanyl Screen Neg Urine Barbiturates Neg Ur Phencyclidine (PCP) Neg U Amphetamin/Meth Scrn Neg MDMA (Ecstasy) Screen Neg U Benzodiazepines Scrn Neg Ur Cocaine Metabolite Neg U Marijuana (THC) Screen Neg Ethyl Alcohol mg/dL Adenovirus (PCR) Not Detected B. pertussis DNA (PCR) Not Detected B.parapertussis DNA PCR Not Detected C. pneumoniae DNA (PCR) Not Detected Coronavirus OC43 (PCR) Not Detected Coronavirus HKU1 (PCR) Not Detected Coronavirus 229E (PCR) Not Detected SARS-CoV-2 (PCR) Not Detected Coronavirus NL63 (PCR) Not Detected Human Metapneumovir PCR Not Detected Influenza Type A (PCR) Not Detected Influenza Type B (PCR) Not Detected M. pneumoniae (PCR) Not Detected Parainfluenza 1 (PCR) Not Detected Parainfluenza 2 (PCR) Not Detected Parainfluenza 3 (PCR) Not Detected Parainfluenza 4 (PCR) Not Detected RSV (PCR) Not Detected Entero/Rhino (PCR) Not Detected 11/25/24 01:55 WBC 21.75 H RBC 4.68 L Hgb 13.9 L Hct 39.2 L MCV 83.8 MCH 29.7 MCHC 35.5 RDW Std Deviation 35.7 L RDW Coeff of Dalton 11.9 Plt Count 276 MPV 10.2 Immature Gran % (Auto) 0.6 Neut % (Auto) 86.6 Lymph % (Auto) 7.4 Daniels % (Auto) 5.1 Eos % (Auto) 0.1 Baso % (Auto) 0.2 Neut # (Auto) 18.83 H Lymph # (Auto) 1.60 Daniels # (Auto) 1.11 H Eos # (Auto) 0.02 Baso # (Auto) 0.05 Immature Gran # (Auto) 0.14 PT 11.1 INR 1.0 APTT 23 PTT Ratio 0.9 Sodium 136 Potassium 3.4 L Chloride 104 Carbon Dioxide 23 Anion Gap 9 BUN 21 Creatinine 1.13 Est Cr Clr Drug Dosing 95.8 eGFR 91.36 BUN/Creatinine Ratio 18.6 Glucose 122 H Lactate Calcium 8.9 Magnesium 1.4 L Total Bilirubin 0.6 AST 30 ALT 25 Alkaline Phosphatase 58 Total Creatine Kinase 164 Troponin I High Sens 7.4 Total Protein 6.8 Albumin 4.4 Globulin 2.4 L Albumin/Globulin Ratio 1.8 Lipase 15 Urine Color Urine Appearance Urine pH Ur Specific [place] Urine Protein Urine Glucose (UA) Urine Ketones Urine Blood Urine Nitrite Urine Bilirubin Urine Urobilinogen Ur Leukocyte Esterase Urine WBC (Auto) Urine RBC (Auto) U Hyaline Cast (Auto) U Epithel Cells (Auto) Urine Bacteria (Auto) Stl C. cayetanensis PCR Stool Rotavirus A PCR Stl Adenov F 40/41 PCR Stool Astrovirus (PCR) Stool Campylobacter PCR Stool Cryptosporidium PCR Stl E.coli Shiga Tox PCR Stl Enterotoxigenic E PCR Stool EPEC (PCR) Stool EAEC (PCR) Stl E. histolytica PCR Stool Giardia Lamblia PCR Stool Salmonella PCR Stool Sapovirus (PCR) Stl P. shigelloides PCR Stl Shigella/EIEC PCR St Y.enterocolitica PCR Stool Vibrio (PCR) Stl Vibrio cholerae PCR Stl Norovirus GI/GII PCR Urine Opiates Screen Ur Methadone, Qual Urine Fentanyl Screen Urine Barbiturates Ur Phencyclidine (PCP) U Amphetamin/Meth Scrn MDMA (Ecstasy) Screen U Benzodiazepines Scrn Ur Cocaine Metabolite U Marijuana (THC) Screen Ethyl Alcohol mg/dL < 10.0 Adenovirus (PCR) B. pertussis DNA (PCR) B.parapertussis DNA PCR C. pneumoniae DNA (PCR) Coronavirus OC43 (PCR) Coronavirus HKU1 (PCR) Coronavirus 229E (PCR) SARS-CoV-2 (PCR) Coronavirus NL63 (PCR) Human Metapneumovir PCR Influenza Type A (PCR) Influenza Type B (PCR) M. pneumoniae (PCR) Parainfluenza 1 (PCR) Parainfluenza 2 (PCR) Parainfluenza 3 (PCR) Parainfluenza 4 (PCR) RSV (PCR) Entero/Rhino (PCR) Diagnostic Findings Chest X-Ray 11/25/24 02:00 EXAM: XR chest 1V portable CLINICAL HISTORY: Chest pain, nonspecific. TECHNIQUE: An X-ray of the chest is obtained in AP projection. COMPARISON: Prior CT angio 12/22/2022 reviewed. FINDINGS: Pulmonary Parenchyma: Newly developed ill-defined opacity seen at the middle lung zone silhouetting the right heart border. A newly developed an ill defined opacity is seen at the left lower lung zone. Progressive course of bilateral prominent bronchovascular markings and reticular opacities. No pulmonary nodules are identified. No evidence of pleural effusion or pleural thickening. Heart and Mediastinum: Heart size and shape are normal. No mediastinal widening or masses. No hilar or mediastinal lymphadenopathy. Bony Thorax: Bony thorax appears intact without fractures or deformities. Soft Tissues: Soft tissues overlying the chest wall are unremarkable. IMPRESSION: 1. Newly developed ill-defined opacity seen at the right middle lung zone; CT is advised. 2. A newly developed an ill defined opacity is seen at the left lower lung zone. 3. Progressive course of bilateral prominent bronchovascular markings and reticular opacities. Electronically signed by Singh Vang 11-25-2024 03:19 AM Chest CTA 11/25/24 02:01 EXAM: CT angio chest PE protocol CLINICAL HISTORY: Chest Pain, eval for PE TECHNIQUE: Contiguous axial images were obtained from the neck base through the upper abdomen following intravenous administration of iodinated contrast material. Angiographic images were processed, 3D MIP images were acquired for interpretation. If IV contrast material had not been administered, the likelihood of detecting abnormalities relevant to the patient's condition would have been substantially decreased. Coronal and sagittal 3-D MIPs were likewise performed and indicated to increase the sensitivity of detectin diffuse clinically relevant pathology. CT scan was performed according to ALARA (as low as reasonable achievable). COMPARISON: 12/22/2022 16:38:53 [employer] FINDINGS: Focal non-opacification of lateral basal segmental artery of left lower lobe. The central airways are patent. Few small patchy areas of consolidation with surrounding ground glass densities are noted in the basal segments of left lower lobe. Rest of the lungs are clear. No pleural effusion. The heart, aorta, and pulmonary arteries are of normal size and configuration. There are no appreciable coronary artery and aortic atherosclerotic calcifications. No pericardial effusion is identified. The thyroid is unremarkable. No mediastinal, hilar, or axillary lymphadenopathy is noted. No suspicious lytic or sclerotic osseous lesions are identified. IMPRESSION: 1. Focal non-opacification of lateral basal segmental artery of left lower lobe-More likely to be an artifactual because of partial volume rather than segmental thromboembolisml. 2. Few small patchy areas of consolidation with surrounding ground glass densities in the basal segments of left lower lobe. (New finding)-Represents changes of infective bronchiolitis - needs clinical and biochemical Parameters correlation. Electronically signed by Luis Garcia 11-25-2024 03:59 AM Medications Administered 2.5L NSS Mag sulfate 1 g IV Ibuprofen 600 mg p.o. Ceftriaxone 2 g IV Azithromycin 500 mg p.o. Albuterol 3 mL neb x 1 Acetaminophen 1g IV ECG Additional Comments: Sinus tachycardia, RAD 114 bpm, NJ 190, QRS 98, QT/QTc 300/413, PRT 66/97/48 Code Status & VTE Plan Code Status Full Supervising Physician Co-Signing Physician Notes I personally saw and examined the patient. I independently reviewed the labs, EKG, imaging, problem list, medication list, past medical history and family history. I verified all sparrow points and agree with Marlon Vasquez PA-C with the following exceptions and/or additions: 29-year-old male presents to the ER with sudden onset chest pain and fever today after a cough approximately for the last week. O/E HS increased rate, regular rhythm, no murmurs, Chest CTAB, Abdo SNT A/P Sepsis / pneumonia - ceftriaxone plus metronidazole, lactate 1.3 no need for further IV fluids. Ibuprofen for pleuritic pain. Suspect WBC somewhat reactive demargination related to vomiting, procalcitonin pending. Questionable filling defect on CT - most likely artifactual given lack of risk factors, young age and alternative explanation of pain. Consider treatment if not improving despite antibiotics PG Care Time/CCT Total # of Minutes Spent Total Time Spent with Patient: Total time spent is greater than 50% in coordination of care (as documented) at patient's floor/unit and/or counseling patient: Coding Level of Care Code 18291 INT INP/OBS CARE 375MIN Diagnoses Sepsis A41.9 Pneumonia J18.9
--- NOTE | 2024-11-25 07:12 | Electrocardiogram Report ---
Test Reason : Blood Pressure : */* mmHG Vent. Rate : 114 BPM Atrial Rate : 114 BPM P-R Int : 190 ms QRS Dur : 98 ms QT Int : 300 ms P-R-T Axes : 66 97 48 degrees QTcB Int : 413 ms Sinus tachycardia Rightward axis Borderline ECG When compared with ECG of 22-Dec-2022 16:06, No significant change was found Confirmed by Dionicio Malik ([id number]) on 11/25/2024 7:12:35 AM Referred By: NO PCP Confirmed By: Dionicio Malik
[2024-11-25] MEDS ORDERED: POLYETHYLENE (MIRALAX) 17 GM PACK PO PRN (09:07)
[2024-11-25] MEDS ORDERED: ONDANSETRON INJ 2 MG/ML 2 ML VIAL IV PRN (09:07)
[2024-11-25] MEDS ORDERED: IBUPROFEN 200 MG/10 ML UDC PO PRN (09:07)
[2024-11-25] MEDS ORDERED: ACETAMINOPHEN 325 MG TAB PO PRN (09:07)
[2024-11-25] MEDS ORDERED: ALUMINUM/MAGNESIUM SUSP 30 ML UDC PO PRN (09:07)
[2024-11-25] MEDS ORDERED: MELATONIN 3 MG TAB PO PRN (09:07)
[2024-11-25 09:09] VITALS: RESP 18; TEMP 97.7
[2024-11-25] MEDS: ENOXAPARIN INJ 40 MG/0.4 ML SYR SQ SCH (11:15)
[2024-11-25 11:18] VITALS: BP 124/71; PULSE 83; O2SAT 99
--- NOTE | 2024-11-25 12:57 | Discharge Summary ---
Discharge Summary Date of Service November 25, 2024 Principal Dx & Hospital Course #1 = Principal Diagnosis (1) Sepsis: (2) Pneumonia: Plan 29-year-old male with no significant PMHx who presents for chest pain starting the day [employer]. ED evaluation revealed leukocytosis 21.75 neutrophil predominant, H&H 13.9/39.2; PT/INR WNL; CMP potassium 3.4, glucose 122, magnesium 1.4, globulin 2.4; CK1 64; Trope 7.4; UA negative for infection; BioFire negative; stool studies negative; drug screen negative; CXR Develop ill-defined opacity seen in right middle lung zone, newly developed ill-defined opacity seen in left lower lung zone, progressive course of bilateral pulmonary bronchovascular markings and reticular opacities; chest CTA focal nonopacification of the lateral basal segmental artery of left lower lobe more likely to be artifactual because of volume rather than PE, few small patchy areas of consolidation with surrounding groundglass densities in the basal segments of LLL, changes of infective bronchiolitis; EKG sinus tachycardia with RAD at 114 bpm.; Provided with 2.5L NSS, mag sulfate 1 g IV, ibuprofen 600 mg p.o., ceftriaxone 2 g IV, azithromycin 500 mg p.o., butyryl 3 mL neb x 1, and acetaminophen 1 g IV in ED. #Sepsis/PNA Meeting sepsis criteria at admission, SIRS (HR, temp, WBC). Sx of sudden onset chest pain, shortness of breath, numbness/tingling in hands and feet starting the day of arrival. Did have 1 episode of vomiting and 1 episode of looser stool. Does not smoke, no illicit drug use. Tachycardic but otherwise hemodynamically stable- Suspect 2/2 infection/was nervous about symptoms. CBC w/ leukocytosis of 21.75. BMP w/ mildly low K of 3.4. Troponin negative, Lactate 1.3, Procal 0.72 Biofire negative, stool studies negative EKG w/ sinus tachycardia CXR: ill-defined opacity seen in right middle lung zone, newly developed ill- defined opacity in left lower lung zone, progressive course of b/l pulmonary bronchovascular markings and reticular opacities. Chest CTA: focal non-opacification lateral basal segmental artery of LLL most likely artifact, few small patchy areas of consolidation w/ surrounding ground glass densities in basal segments of LLL. Given patient's history of productive cough and the fact that he has no RF of a bloot clot, a PE is very unlikely. Patient has responded well to IVF, IV antibiotics and is feeling better. His chest pain only is occurring upon deep inspiration & has not been as severe compared to when he presented to the ED. Ibuprofen as needed for chest pain s/p Rocephin & Azithromycin --> transition to Amoxicillin TID x 4 days and Azithromycin (500mg) x 2 days upon discharge. 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 #Hypomagnesemia As found on labs, appears to be acute. - 1.4 Received magnesium sulfate 1 g IV in ED. Patient discharged home 11/25. Admission HPI Per Admitting Provider 29-year-old male with no significant PMHx who presents for chest pain starting the day [employer]. States that he was out to dinner when he got up to use the restroom to have a BM. At that time he started to have leg and hand numbness as well as some chest pain. He states that this episode lasted approximately 5 to 8 minutes and then he went and sat back down at the table. He went home following this and notes that he had a similar episode when he went to his brother's house where he started to have some left-sided chest pain that did not radiate, and it continued to become more severe throughout the night. States that it was just a heavy/sharp pain and was associated with SOB. He states that he felt as though he cannot take a deep breath. He does report that he has had approximately 3 days of a productive cough but he is unsure the quality of the sputum. He had a fever the day of arrival at 103 F and he took a Tylenol and it decreased some. Did have 1 episode of nausea with vomiting. Patient states he is currently chest pain-free, not SOB, and no palpitations. Denies any calf pain or swelling. Does not smoke, denies illicit drug use. ED evaluation revealed leukocytosis 21.75 neutrophil predominant, H&H 13.9/39.2; PT/INR WNL; CMP potassium 3.4, glucose 122, magnesium 1.4, globulin 2.4; CK1 64; Trope 7.4; UA negative for infection; BioFire negative; stool studies negative; drug screen negative; CXR Develop ill-defined opacity seen in right middle lung zone, newly developed ill-defined opacity seen in left lower lung zone, progressive course of bilateral pulmonary bronchovascular markings and reticular opacities; chest CTA focal nonopacification of the lateral basal segmental artery of left lower lobe more likely to be artifactual because of volume rather than PE, few small patchy areas of consolidation with surrounding groundglass densities in the basal segments of LLL, changes of infective bronchiolitis; EKG sinus tachycardia with RAD at 114 bpm.; Provided with 2.5L NSS, mag sulfate 1 g IV, ibuprofen 600 mg p.o., ceftriaxone 2 g IV, azithromycin 500 mg p.o., butyryl 3 mL neb x 1, and acetaminophen 1 g IV in ED. Please see Dr. Tubbs's attestation for adjustments/additions to treatment plan. Discharge Exam Constitutional WD/WN, vitals as above Eyes PERRL, conjunctivae normal, anicteric sclerae Respiratory normal respiratory effort, lungs clear to auscultation Cardiovascular RRR, no murmur, no edema Neurologic PERRL, EOMI, accommodation nl, no face palsy, no dysarthria Psychiatric A+Ox3, euthymic affect Discharge Plan Discharge Items Patient Disposition: Home - Self-Care Reason For Visit: PNA Discharge Diagnosis: Pneumonia Condition on Discharge: Good Activity: Resume your previous activity Non-emergency contact: Primary Care Provider Call non-emergency contact if: you have any medication questions, your symptoms worsen and you have a fever Follow-up/Referrals: PCP,NO [Primary Care Provider] - Diet: Regular Addtl Attending Provider Instructions: Mr. Holland, You were recently hospitalized for chest pain, shortness of breath, and a cough. You were found to have pneumonia and were treated with IV antibiotics and IV fluids. Please see recommendations below regarding your discharge. Please take Azithromycin 500mg once daily for 2 days starting tomorrow morning, 11/26. Please take Amoxicillin 500mg three times daily for 4 days starting tomorrow morning, 11/26. Please use an albuterol inhaler every 6 hours as needed for shortness of breath or wheezing. Please use Ibuprofen as needed for chest pain. Please use Mucinex as needed for cough or congestion. If you develop any worsening symptoms including shortness of breath, severe chest pain not alleviated by NSAIDs, or high fever please report back to the ER for further care. [facility] [place] [place] PA-C Pending Studies at Discharge: Yes Studies:: blood cultures Stand-Alone Forms: My [facility] AddMyBest, Smoking Cessation Medications and DC Order Prescriptions: New azithromycin 500 mg tablet 500 mg PO DAILY Qty: 2 0RF amoxicillin 500 mg capsule 500 mg PO TID Qty: 12 0RF albuterol sulfate 90 mcg/actuation aerosol powdr breath activated 2 inh inhalation Q6H PRN (Reason: shortness of breath or wheezing) Qty: 1 0RF No Action No Known Home Medications Discharge Orders: Discharge Order (Routine); Ordered 11/25/24 Ordered By: [place] Admission Data Admit Date/Time: 11/25/24 05:14 Attending Provider: Brianda Hicks Admit Provider: Howard Tubbs Primary Care Provider: PCP,NO Other Providers: Howard Tubbs Hospital Stay Data Consultations 11/25/24 04:56 ED Decision to Admit Stat Diagnostic Imagining Performed 11/25/24 02:01 CT angio chest PE protocol Stat Pending Results Patient Have Any Pending Studies at Discharge: Yes Discharge Instructions Given to Patient (Per Discharging Provider) Mr. Holland, You were recently hospitalized for chest pain, shortness of breath, and a cough. You were found to have pneumonia and were treated with IV antibiotics and IV fluids. Please see recommendations below regarding your discharge. Please take Azithromycin 500mg once daily for 2 days starting tomorrow morning, 11/26. Please take Amoxicillin 500mg three times daily for 4 days starting tomorrow morning, 11/26. Please use an albuterol inhaler every 6 hours as needed for shortness of breath or wheezing. Please use Ibuprofen as needed for chest pain. Please use Mucinex as needed for cough or congestion. If you develop any worsening symptoms including shortness of breath, severe chest pain not alleviated by NSAIDs, or high fever please report back to the ER for further care. [facility] [place] [place] PA-C Total Time Total Time Spent Total Time Spent (In Minutes): 35 Total Time Includes: Examination of the Patient, Discharge Planning and Medication Reconciliation Coding Level of Care Code 15920 INP/OBS DISCH >30 MIN Diagnoses Sepsis A41.9 Pneumonia J18.9 Laterality: bilateral Lung location: unspecified part of lung Pneumonia type: due to unspecified organism
[2024-11-26] MEDS ORDERED: cefTRIAXone SODIUM 2,000 MG/50 ML BAG IV SCH (04:00)
[2024-11-26] MEDS ORDERED: AZITHROMYCIN 250 MG TAB PO SCH (06:30)
== END 2024-11-25 13:13 | disposition home or self-care (01) | DRG 871 ==
LOC: SUATTDRO → ED 01:45 → SUATTDRO 05:14 → 2N 05:14